=== PATIENT | female | born 1960 | race Caucasian/White ===

== ENCOUNTER 2020-06-15 16:14 | Emergency (ER) | payer BC ==
[~2020-06-15] VITALS: Ht 167.6 cm; Wt 59.0 kg
[2020-06-15 16:25] VITALS: BP 137/95
[2020-06-15] MEDS ORDERED: XYLOCAINE 1%-EPI 1:100,000 ONE (16:43)
--- NOTE | 2020-06-15 16:47 | ER.PDOC ---
General Chief Complaint: Extremities Stated Complaint: LAC ON LEFT ARM Time seen by MD: 16:38 Source: patient Exam Limitations: no limitations History of Present Illness Initial Comments Pt cut L forearm on piece of wood, thinks there was a nail on it. Was bleeding initially, now controlled. Occurred: just prior to arrival Where: home Severity: mild Modifying Factors: nothing Past Medical History Medical History: no pertinent history Surgical History: hysterectomy, neck Family History Significant Family History: no pertinent family hx Social History Alcohol Use: none Drug Use: none Review of Systems Constitutional: no symptoms reported EENTM: no symptoms reported Respiratory: no symptoms reported Cardiovascular: no symptoms reported Gastrointestinal: no symptoms reported Genitourinary: no symptoms reported Musculoskeletal: see HPI Skin: see HPI, other (cut on L forearm) Physical Exam General Appearance: Alert, No Apparent Distress Hand: nml inspection Wrist: nml inspection, nml ROM Forearm/Elbow: nml ROM, see diagram Arm/Shoulder: nml inspection 1 - laceration, with surrounding abrasion; approx 2cm Neuro/Vasc/Tendon: sensation nml, motor nml, no vascular compromise, tendon function nml Respiratory: breath sounds nml ED LACERATION WOUND REPAIR # of Wounds/Lacerations Presen: 1 Wound Location & Length (Requi: L forearm Wound Length (cm): 2 (2.5) Wound cleaned: betadine Distal NVT: neuro intact Anesthesia type: local Anesthesia: Lidocaine w/ Epi Volume Anesthetic (ccs): 4 Wound's Depth, Shape: linear Irrigated w/ Saline (ccs): 300 Suture Size/Type: 4:0, silk Suture Style: interupted Number of Sutures: 4 Layer Closure?: No Results/Orders Results/Orders Vital Signs Date Time Temp Pulse Resp B/P (MAP) Pulse Ox O2 Delivery O2 Flow Rate FiO2 06/15/20 16:25 98.6 74 16 137/95 (109) 95 Room Air 06/15/20 16:25 98.6 74 16 06/15/20 16:25 98.6 74 16 95 Departure Time of Disposition: 17:18 Disposition: 01 HOME, SELF-CARE Impression: Primary Impression: Laceration of forearm Condition: Stable Referrals: MARINE BEVERLY (PCP) PRIMARY CARE PROVIDER Additional Instructions: return in 7-10 days to get stitches out Duration or Time Spent with Pa: 25 Problem Qualifiers Primary Impression: Laceration of forearm Encounter type: initial encounter Laterality: left Qualified Codes: S51.812A - Laceration without foreign body of left forearm, initial encounter SEBASTIAN GRIGGS DO Jun 15, 2020 16:47
[2020-06-15 17:19] VITALS: BP 109/54
[2020-06-15] MEDS ORDERED: TRIPLE ANTIBIOTIC OINTMENT TP ONE (17:23)
[2020-06-15] MEDS ORDERED: KEFLEX PO ONE (17:33)
== END 2020-06-15 17:41 | disposition home or self-care (01) ==
LOC: ER 16:14
DX: S51.812A Laceration without foreign body of left forearm, initial encounter (principal); Z90.710 Acquired absence of both cervix and uterus; W45.0XXA Nail entering through skin, initial encounter; Y93.89 Activity, other specified; Y92.098 Other place in other non-institutional residence as the place of occurrence of the external cause; Y99.8 Other external cause status
CPT/HCPCS: 99282; 12001